=== PATIENT | female | born 1955 | race Asian ===

== ENCOUNTER 2021-06-19 12:11 | Emergency (ER) | payer MEDICARE, OTHER ==
[2021-06-19 12:32] LABS: Bilirubin Negative (Negative); Blood, Urine Large (Negative); Clarity Slightly Cloudy (Clear); Glucose, Urine (Dipstick) Negative (Negative); Ketone, Urine Negative (Negative); Leukocyte Moderate (Negative); Nitrite Negative (Negative); Protein, Urine (Dipstick) > or equal to 300 mg/dL (Neg-Trace); Urobilinogen 0.2 mg/dL (Less than 2); pH, Urine 5.5 (5.0-9.0)
[2021-06-19 12:35] LABS: Specific Gravity, Urine 1.004 (1.002-1.036)
[2021-06-19 13:14] LABS: RBC/HPF 21-50 HPF (0-3); Squamous Epithelial 0-3 HPF (0-3); WBC/HPF Greater than 50 HPF (0-3)
[2021-06-19 13:15] LABS: Bacteria/HPF 1+ HPF (None Seen); White Blood Cell Cast 0-3 LPF (None Seen)
== END 2021-06-19 12:53 | disposition home or self-care (01) ==
LOC: BURERS 12:11
DX: N30.01 Acute cystitis with hematuria (principal); E11.9 Type 2 diabetes mellitus without complications; I10 Essential (primary) hypertension; Z79.899 Other long term (current) drug therapy
CPT/HCPCS: 81003; 81015; 99283